=== PATIENT | male | born 2000 | race Caucasian/White ===

== ENCOUNTER 2022-04-26 16:57 | Emergency (ER) | payer BC ==
[2022-04-26] MEDS ORDERED: Ketorolac Tromethamine 30 MG/ML VIAL ONE (17:34)
== END 2022-04-26 18:36 | disposition home or self-care (01) ==
LOC: ERS 16:57
DX: M25.512 Pain in left shoulder (principal); W18.30XA Fall on same level, unspecified, initial encounter
CPT/HCPCS: J1885